=== PATIENT | female | born 1935 | race Caucasian/White ===

== ENCOUNTER 2022-08-17 18:31 | Observation (INO) ==
--- NOTE | 2022-08-17 19:24 | Emergency Department Note ---
History of Present Illness General Chief complaint: Illness Time Seen by Provider: 08/17/22 19:09 Source: patient, family (Daughter who is at the bedside), RN notes reviewed and old records reviewed (I have reviewed the ambulance records) Mode of arrival: ambulatory Limitations: no limitations History of Present Illness This patient is a 87-year-old female who has a history of a significant stroke in the past, comes in after an shortness of breath. She was exposed to COVID 1 week ago and tested home positive COVID last night she had some shortness of breath although feels better now. She had a low-grade temperature for her which was up to 98 H she been coughing all day no new numbness or weakness no fall or trauma no blood or melena stool she has been eating drinking as normal she is on Eliquis. No headache. No dysuria Home Medications Medication Instructions Recorded Confirmed Type Eliquis 2.5 mg PO BID 08/17/22 08/17/22 History Vitamin C 500 mg PO DAILY 08/17/22 08/17/22 History levothyroxine 25 mcg tablet 25 mcg PO DAILY 08/17/22 08/17/22 History mirabegron 25 mg tablet,extended 25 mg PO DAILY 08/17/22 08/17/22 History release 24 hr (Myrbetriq) pravastatin 10 mg tablet 10 mg PO DAILY 08/17/22 08/17/22 History senna 25 mg PO AC 08/17/22 08/17/22 History sertraline 25 mg tablet 25 mg PO DAILY 08/17/22 08/17/22 History tramadol 25 mg PO DAILY 08/17/22 08/17/22 History Allergies Allergy/AdvReac Type Severity Reaction Status Date / Time No Known Allergies Allergy Unverified 02/09/20 06:13 Past Med/Surg History Social History Smoking Status: Never smoker Hx Alcohol Use: No Hx Substance Use: No Preferred Language: Moldovan Communication Ability: Effective Baking Powder Mixer Required: No Beliefs That Will Affect Care: Advent Advent Beliefs: Congregational. Would like to see airport operations crew member Current Living Situation: Spouse Current Living Situation Comment: Usually has 24 hour care when needed Feels Safe at Home: Yes Safety Concerns: Feels Safe At This Time Assistive Devices: Hospital Bed Assistive Devices Comment: dentures don't fit Immunizations: Past med historyCVA, on Eliquis. Denies history of pulmonary disease, blood clots. She does have cardiomyopathy and kidney stone Social historyshe is followed by Dr. Patino Review of Systems A total of 10 systems reviewed and were otherwise negative Physical Exam Vital Signs Vital Signs - 24 hr 08/17/22 18:35 08/17/22 19:46 08/17/22 21:01 Temperature 37.2 C Temperature Source Oral Pulse Rate 96 H 91 H Pulse Rate [Left Finger] 88 Respiratory Rate 24 18 22 Respiratory Effort / Characteristics Non-Labored Respiratory Depth Normal Blood Pressure 155/98 H Blood Pressure [Right Arm] 155/98 H Blood Pressure Mean 117 Blood Pressure Mean [Right Arm] 117 Blood Pressure Position [Right Arm] Lying Pulse Oximetry 99 99 90 Oxygen Delivery Method Room Air Nasal Cannula Room Air Oxygen Flow Rate 2 Sepsis Recent Fever Within 48 Hours No Sepsis New/Unexplained Change in Mental Status N/A Sepsis Action Taken by Nursing No Action Required 08/17/22 21:01 08/17/22 18:43 Temperature Temperature Source Pulse Rate 92 H Pulse Rate [Left Finger] 91 H Respiratory Rate Respiratory Effort / Characteristics Respiratory Depth Blood Pressure Blood Pressure [Right Arm] Blood Pressure Mean Blood Pressure Mean [Right Arm] Blood Pressure Position [Right Arm] Pulse Oximetry 90 Oxygen Delivery Method Room Air Oxygen Flow Rate Sepsis Recent Fever Within 48 Hours Sepsis New/Unexplained Change in Mental Status Sepsis Action Taken by Nursing General: Well developed well nourished chronically appearing older female who appears in no acute distress, breathing comfortably supplemental nasal cannula which she does not typically wear normal speech HEENT: Normal cephalic atraumatic. Pupils are equal round and reactive to light. Extraocular movements are intact. Oropharynx is pink with moist mucous membranes. No swelling of the mouth lips or tongue. Neck: Supple with a midline trachea. No meningeal signs or stiffness, no JVD or bruits. No Stridor. Chest: Clear to auscultation bilaterally. No wheezes or rhonchi. No increased work of breathing. Heart: Regular rate and rhythm without murmurs or gallops. Abdomen: Soft nontender, nondistended without rebound guarding or rigidity. Extremities: No cyanosis clubbing or edema. No calf tenderness or assymetry Spine/Back. Non tender to palpation. No CVA tenderness Skin: Good turgor without rashes. Neurologic exam: Cranial nerves two through 12 are intact. Baseline left-sided weakness. No acute neurologic deficit Course Administered Medications Albuterol (Albut/Ipratrop 3mg/0.5mg Neb 3 Ml Vial) 3 ml NEB Q2H PRN; Protocol PRN Reason: SOB/WHEEZING Stop: 09/16/22 22:01 Last Admin: 08/18/22 01:40 Dose: 3 ml Documented By: Admin: 08/17/22 22:37 Dose: 3 ml Documented By: CHESTER Apixaban (Apixaban 2.5 Mg Tab) 2.5 mg PO BID RYLIE Stop: 09/16/22 23:50 Last Admin: 08/18/22 00:34 Dose: 2.5 mg Documented By: HYACINTH Tramadol HCl (Tramadol Hcl 50 Mg Tablet) 25 mg PO HS RYLIE Stop: 09/16/22 23:50 Last Admin: 08/18/22 00:29 Dose: 25 mg Documented By: HYACINTH Discontinued Medications Guaifenesin (Guaifenesin Sugar Free 200 Mg/10 Ml Udc) 200 mg PO NOW STA Stop: 08/17/22 22:00 Last Admin: 08/17/22 22:09 Dose: 200 mg Documented By: SHANE Medical Decision Making Differential Diagnosis COVID, sepsis, pneumonia, cardiac disease, electrolyte or metabolic abnormality, CV Medical Records Attestation: I reviewed the patient's medical records. Home Medications Current Medication List: was personally reviewed by me Laboratory Data Attestation: I reviewed the patient's lab results. 08/17/22 19:15 08/17/22 19:15 Lab Results 08/17/22 08/17/22 08/17/22 Range/Units 19:15 19:15 19:15 WBC 6.11 (4.8-10.8) K/ul RBC 3.66 L (4.20-5.40) M/uL Hgb 11.5 L (12.0-16.0) g/dl Hct 35.5 L (37.0-47.0) % MCV 97.0 (80.0-100.0) fL MCH 31.4 (25.0-34.0) pg MCHC 32.4 (32.0-36.0) g/dL RDW Std Deviation 50.6 H (36.4-46.3) fL RDW Coeff of [place] 14.1 (11.5-14.5) % Plt Count 261 (130-400) K/uL MPV 9.8 (9.4-12.4) fL Immature Gran % (Auto) 0.3 % Neut % (Auto) 72.7 % Lymph % (Auto) 14.9 % [place] % (Auto) 11.0 % Eos % (Auto) 0.8 % Baso % (Auto) 0.3 % Neut # (Auto) 4.44 (1.40-6.50) K/uL Lymph # (Auto) 0.91 L (1.2-3.4) K/uL [place] # (Auto) 0.67 H (0.11-0.59) K/uL Eos # (Auto) 0.05 (0-0.50) K/uL Baso # (Auto) 0.02 (0-0.2) K/uL Immature Gran # (Auto) 0.02 (0.01-0.20) K/uL Sodium 138 (136-145) mmol/L Potassium 4.0 (3.5-5.1) mmol/L Chloride 102 (98-107) mmol/L Carbon Dioxide 34 H (21-32) mmol/L Anion Gap 2 L (3-11) BUN 16 (6-23) mg/dl Creatinine 0.42 L (0.6-1.2) mg/dl Est Cr Clr Drug Dosing 84.2 ml/min Est GFR ( Amer) 107.6 ml/min Est GFR (Non-Af Amer) 92.8 ml/min BUN/Creatinine Ratio 38.1 H (10-20) Glucose 103 H (70-99(Fasting)) mg/dl Lactate (0.4-2.0) mmol/L Calcium 8.9 (8.5-10.1) mg/dl Magnesium 1.8 (1.7-2.4) mg/dl Total Bilirubin 0.3 (0.2-1.0) mg/dl Direct Bilirubin 0.1 (0-0.2) mg/dl AST 24 (13-39) U/L ALT 12 (7-52) U/L Alkaline Phosphatase 100 (34-104) U/L Troponin I High Sens 12.2 (0-14) pg/ml Total Protein 6.0 (6.0-8.3) gm/dl Albumin 3.3 L (3.4-5.0) gm/dl Procalcitonin < 0.05 (0-0.5) ng/ml Urine Color Urine Appearance (Clear) Urine pH (4.5-7.5) Ur Specific [place] (1.000-1.030) Urine Protein (Negative) Urine Glucose (UA) (Negative) Urine Ketones (Negative) Urine Blood (Negative) Urine Nitrite (Negative) Urine Bilirubin (Negative) Urine Urobilinogen (Negative) Ur Leukocyte Esterase (Negative) Urine WBC (Auto) (0-5) /hpf Urine RBC (Auto) (0-4) /hpf U Hyaline Cast (Auto) (0-5) /lpf U Epithel Cells (Auto) (0-5) /lpf Urine Bacteria (Auto) (Negative) SARS-CoV-2 (PCR) (Negative) Influenza Type A (PCR) (Neg) Influenza Type B (PCR) (Neg) RSV (RT-PCR) (Neg) 08/17/22 08/17/22 08/17/22 Range/Units 19:35 20:38 20:38 WBC (4.8-10.8) K/ul RBC (4.20-5.40) M/uL Hgb (12.0-16.0) g/dl Hct (37.0-47.0) % MCV (80.0-100.0) fL MCH (25.0-34.0) pg MCHC (32.0-36.0) g/dL RDW Std Deviation (36.4-46.3) fL RDW Coeff of [place] (11.5-14.5) % Plt Count (130-400) K/uL MPV (9.4-12.4) fL Immature Gran % (Auto) % Neut % (Auto) % Lymph % (Auto) % [place] % (Auto) % Eos % (Auto) % Baso % (Auto) % Neut # (Auto) (1.40-6.50) K/uL Lymph # (Auto) (1.2-3.4) K/uL [place] # (Auto) (0.11-0.59) K/uL Eos # (Auto) (0-0.50) K/uL Baso # (Auto) (0-0.2) K/uL Immature Gran # (Auto) (0.01-0.20) K/uL Sodium (136-145) mmol/L Potassium (3.5-5.1) mmol/L Chloride (98-107) mmol/L Carbon Dioxide (21-32) mmol/L Anion Gap (3-11) BUN (6-23) mg/dl Creatinine (0.6-1.2) mg/dl Est Cr Clr Drug Dosing ml/min Est GFR ( Amer) ml/min Est GFR (Non-Af Amer) ml/min BUN/Creatinine Ratio (10-20) Glucose (70-99(Fasting)) mg/dl Lactate 0.9 (0.4-2.0) mmol/L Calcium (8.5-10.1) mg/dl Magnesium (1.7-2.4) mg/dl Total Bilirubin (0.2-1.0) mg/dl Direct Bilirubin (0-0.2) mg/dl AST (13-39) U/L ALT (7-52) U/L Alkaline Phosphatase (34-104) U/L Troponin I High Sens (0-14) pg/ml Total Protein (6.0-8.3) gm/dl Albumin (3.4-5.0) gm/dl Procalcitonin (0-0.5) ng/ml Urine Color Yellow Urine Appearance Turbid A (Clear) Urine pH 7.0 (4.5-7.5) Ur Specific [place] 1.017 (1.000-1.030) Urine Protein Negative (Negative) Urine Glucose (UA) Negative (Negative) Urine Ketones Trace H (Negative) Urine Blood 3+ H (Negative) Urine Nitrite Negative (Negative) Urine Bilirubin Negative (Negative) Urine Urobilinogen Negative (Negative) Ur Leukocyte Esterase Trace H (Negative) Urine WBC (Auto) 5-10 H (0-5) /hpf Urine RBC (Auto) >30 H (0-4) /hpf U Hyaline Cast (Auto) 1-5 (0-5) /lpf U Epithel Cells (Auto) >30 H (0-5) /lpf Urine Bacteria (Auto) Negative (Negative) SARS-CoV-2 (PCR) POSITIVE A* (Negative) Influenza Type A (PCR) Negative (Neg) Influenza Type B (PCR) Negative (Neg) RSV (RT-PCR) Negative (Neg) Imaging Data Attestation: I personally reviewed and interpreted this imaging study as follows: My Impression: Chest x-rayno acute infiltrate, failure, pneumothorax. There may be some atelectasis in the bases Radiologist's Impression: Chest X-Ray 08/17/22 19:20 XR chest 1V portable HISTORY: Sepsis COMPARISON: None. FINDINGS: No pneumothorax. The cardiac silhouette is borderline enlarged. There are lung zones remain clear. No evidence for pulmonary edema. Slightly rotated study. Advanced degenerative changes within the right shoulder. Trace left pleural effusions. Bibasilar linear densities. IMPRESSION: 1. Trace left pleural effusion. 2. Bibasilar linear densities. This favors subsegmental atelectasis. ACT 112: Negative or not required by law. Electronically signed by: Stefan Yu M.D. 08/17/2022 8:53 PM ECG Data Attestation: I personally reviewed and interpreted this ECG as follows: Indication: + SOB/dyspnea Rate (beats per minute): 90 Rhythm: + normal sinus ECG Intervals/blocks: + Normal QRS, + Normal QT and + Normal CA ECG [place]: + Normal ECG ST segments: + Normal ST segments ECG Findings: no PACs or no PVCs Comparison ECG Date: from (02/19/2020) Change: the following changes noted (There is deviation in the QRS laterally) MDM Narrative This patient comes in as described above. She was placed in room B8. I talked to the daughter at length who was in the room. She looks stable on supplemental oxygen for she does not typically wear. Has been short of breath and has a history of being diagnosed with COVID yesterday. She is certainly high risk given her history of CVA and baseline weakness. Chest x-ray does not show any definite pneumonia there may be some atelectasis in the bases. I did a full assessment sepsis type work-up. Her white count, lactic acid and procalcitonin are not elevated. COVID test did come back positive. She was hypoxemic at 91% and she is certainly a risk given the fact that she has stroke history with significant left-sided weakness at baseline. I do think she needs to be admitted/observed in the hospital and have consulted Dr. Muhammad to see the patient in ER for these measures. Continuous cardiac monitoring: An order was placed in EMR for continuous cardiac monitoring. Alexis interpretation patient noted to be in normal sinus rhythm rate of 90. Impression & Plan COVID-19, Hx of ischemic right MCA stroke, SOB (shortness of breath), Hypoxemia Discharge Plan Visit Data Chief Complaint: Illness ED Provider: Jw Lennon Discharge Problem: COVID-19, Hx of ischemic right MCA stroke, SOB (shortness of breath), Hypoxemia Patient Disposition: Admitted As Inpatient Discharge Instructions Interventions: ED Discharge Assessment Last Done: 08/17/22 23:49
[2022-08-17 19:54] LABS: Basophils # (auto) 0.02 K/uL (0-0.2); Basophils % (auto) 0.3 %; Eosinophils # (auto) 0.05 K/uL (0-0.50); Eosinophils % (auto) 0.8 %; Hematocrit (blood only) 35.5 % (37.0-47.0); Hemoglobin 11.5 g/dl (12.0-16.0); Immature Granulocytes # (auto) 0.02 K/uL (0.01-0.20); Immature Granulocytes % (auto) 0.3 %; Lymphocytes # (auto) 0.91 K/uL (1.2-3.4); Lymphocytes % (auto) 14.9 %; Mean Corpuscular Hemoglobin 31.4 pg (25.0-34.0); Mean Corpuscular Hgb Conc 32.4 g/dL (32.0-36.0); Mean Platelet Volume 9.8 fL (9.4-12.4); Monocytes # (auto) 0.67 K/uL (0.11-0.59); Neutrophils # (auto) 4.44 K/uL (1.40-6.50); Neutrophils % (auto) 72.7 %; Platelet Count 261 K/uL (130-400); RDW Coefficient of Variation 14.1 % (11.5-14.5); RDW Standard Deviation 50.6 fL (36.4-46.3); Red Blood Count 3.66 M/uL (4.20-5.40); White Blood Count 6.11 K/ul (4.8-10.8)
[2022-08-17 20:03] LABS: Albumin Level 3.3 gm/dl (3.4-5.0); BUN Creatinine Ratio 38.1 (10-20); Bilirubin Direct 0.1 mg/dl (0-0.2); Bilirubin,Total 0.3 mg/dl (0.2-1.0); Calcium 8.9 mg/dl (8.5-10.1); Creatinine Clr Calc Pharmacy 84.2 ml/min; Est GFR (African American) 107.6 ml/min; Est GFR (Non-African American) 92.8 ml/min; Magnesium 1.8 mg/dl (1.7-2.4)
[2022-08-17 20:04] LABS: Troponin I High Sensitivity 12.2 pg/ml (0-14)
--- NOTE | 2022-08-17 20:54 | XRay Report ---
XR chest 1V portable HISTORY: Sepsis COMPARISON: None. FINDINGS: No pneumothorax. The cardiac silhouette is borderline enlarged. There are lung zones remain clear. No evidence for pulmonary edema. Slightly rotated study. Advanced degenerative changes within the right shoulder. Trace left pleural effusions. Bibasilar linear densities. IMPRESSION: 1. Trace left pleural effusion. 2. Bibasilar linear densities. This favors subsegmental atelectasis. ACT 112: Negative or not required by law. Electronically signed by: Stefan Yu M.D. 08/17/2022 8:53 PM
[2022-08-17 21:12] LABS: Appearance Urine Turbid (Clear); Bacteria Urine Automated Negative (Negative); Bilirubin Urine Negative (Negative); Blood Urine 3+ (Negative); Color Urine Yellow; Epithelial Cell Urine Auto >30 /lpf (0-5); Glucose Urine UA Negative (Negative); Ketones Urine Trace (Negative); Leukocyte Esterase Urine Trace (Negative); Nitrite Urine Negative (Negative); Protein Urine Negative (Negative); RBC Urine Automated >30 /hpf (0-4); Specific Gravity Urine 1.017 (1.000-1.030); Urobilinogen Urine Negative (Negative)
--- NOTE | 2022-08-17 21:17 | History & Physical Report ---
Date of Service August 17, 2022 Assessment & Plan (1) COVID-19: Plan: -Admit to med/tele -Patient noted to have a close contact test positive for covid and tested positive herself at home yesterday -Currently stable but high risk for decompensation and currently without a caregiver at home -Will continue symptomatic treatment with incentive spirometry, flutter therapy, scheduled DuoNebs, and schedule robitussin -If after her initial treatment the patient is saturating below 95% will start treatment with Dexamethasone and Remdesivir -Monitor on tele and pulse oximetry -Am CBC, BMP, and mag (2) Hx of ischemic right MCA stroke: Plan: -Currently with baseline left-sided hemiparesis -No new focal defects -Continue Eliquis -Continue home tramadol -Will order bedside dysphagia screen, patient is supposed to take medications with pudding -If she fails her dysphagia screen would have her evaluated by speech -Aspiration precautions ordered with minced/moist diet as explained by her lou garces (3) Hypothyroidism: Plan: -Continue levothyroxine (4) Hyperlipidemia: Plan: -Continue statin Plan The patient was discussed with Dr. Muhammad at the time of the admission History of Present Illness Chief Complaint: URI symptoms, covid + at home Primary Care Provider: Simón Mckeon is an 87 year old female with a PMH significant for previous CVA with left sided weakness, on Eliquis, hyperlipidemia, hypothyroidism, who presented to the [facility] ED on 08/17/22 with a chief complaint of URI symptoms and positive home covid test. In the ED the patient was found to be afebrile, hemodynamically stable and stable on RA. Labs were remarkable for a CBC with WBC WNL, stable Hgb and platelets, stable cr at 0.42, AG of 2 with bicarb of 34, LFTs WNL, high sensitivity trop of 12.2, procal of < 0.05, and covid positive. At the time of the exam the patient was lying comfortably in bed in no acute distress with her daughter sitting bedside. Her daughter states that the patient normally has 24 hour care at home but one of her caregivers tested positive for covid a few days ago. Yesterday the patient developed a productive cough and congestion, she subsequently tested positive for covid on a home test. She currently feels slightly improved after arriving to the ED but her symptoms have not resolved. Her daughter states that the patient takes her medications with pudding and has to eat a minced and moist diet but can tolerate thin liquids. She recently completed a course of Keflex for a UTI but denies current symptoms. We discussed code status, she wishes to be a DNR/DNI. Please refer to Dr. Muhammad's attestation for any changes to the treatment plan Allergies Allergy/AdvReac Type Severity Reaction Status Date / Time No Known Allergies Allergy Unverified 02/09/20 06:13 Home Medications Medication Instructions Recorded Confirmed Type Eliquis 2.5 mg PO BID 08/17/22 08/17/22 History Vitamin C 500 mg PO DAILY 08/17/22 08/17/22 History levothyroxine 25 mcg tablet 25 mcg PO DAILY 08/17/22 08/17/22 History mirabegron 25 mg tablet,extended 25 mg PO DAILY 08/17/22 08/17/22 History release 24 hr (Myrbetriq) pravastatin 10 mg tablet 10 mg PO DAILY 08/17/22 08/17/22 History senna 25 mg PO AC 08/17/22 08/17/22 History sertraline 25 mg tablet 25 mg PO DAILY 08/17/22 08/17/22 History tramadol 25 mg PO DAILY 08/17/22 08/17/22 History Past Med/Surg History Social History Smoking Status: Never smoker Hx Alcohol Use: No Hx Substance Use: No Preferred Language: Upper Sorbian Communication Ability: Effective Technician Inventory Specialist Required: No Beliefs That Will Affect Care: Sabianist Sabianist Beliefs: Hindu. Would like to see recruitment consultant Current Living Situation: Spouse Current Living Situation Comment: Usually has 24 hour care when needed Feels Safe at Home: Yes Safety Concerns: Feels Safe At This Time Assistive Devices: Hospital Bed Assistive Devices Comment: dentures don't fit Review of Systems Review of Systems: Denies current fever, chills, headache, changes in vision, hearing, taste, and smell, chest pain, SOB, abdominal pain, nausea, vomiting, diarrhea, hematemesis, melena, dysuria, hematuria, and recent falls. All systems have been reviewed and are otherwise negative. Physical Exam Physical Exam: Physical Exam: General: In no acute distress, stated age, chronically ill-appearing but non- toxic appearing HEENT: Normocephalic, atraumatic, no scleral icterus, pupils around round, symmetrical, and reactive to light, dry mucus membranes, trachea midline, no thyromegaly Chest/Pulm: No respiratory distress, symmetrical chest expansion, expiratory wheezing noted in the BL lower lung senior Cardiac: RRR, no murmurs noted Abdomen: Negative for ascites and bruising, normoactive bowel sounds, soft, non-tender to palpation throughout Musculoskeletal: Patient with chronic baseline left-sided weakness, no acute trauma noted on exam Extremities: Radial, dorsalis pedis, and posterior tibial pulses are intact and symmetrical, no edema noted in the BL LE's Skin: Warm, dry, no rashes , lesions, or scars noted Neuro: Alert and oriented to person, place, month, year, and president, patient with baseline left-sided paralysis Psych: No acute distress, calm and cooperative during the exam Results & Data Results & Data ([facility]) Vital Signs (Past 12 Hours) Vital Signs Temp Pulse Pulse Resp BP BP Pulse Ox 08/17/22 21:01 91 H 90 08/17/22 21:01 91 H 22 90 08/17/22 19:46 88 18 155/98 H 99 08/17/22 18:35 37.2 C 96 H 24 155/98 H 99 O2 Del Method O2 Flow Rate 08/17/22 21:01 Room Air 08/17/22 21:01 Room Air 08/17/22 19:46 Nasal Cannula 2 08/17/22 18:35 Room Air Laboratory Results Abnormal lab results 08/17/22 08/17/22 08/17/22 Range/Units 19:15 19:15 20:38 RBC 3.66 L (4.20-5.40) M/uL Hgb 11.5 L (12.0-16.0) g/dl Hct 35.5 L (37.0-47.0) % RDW Std Deviation 50.6 H (36.4-46.3) fL Lymph # (Auto) 0.91 L (1.2-3.4) K/uL [place] # (Auto) 0.67 H (0.11-0.59) K/uL Carbon Dioxide 34 H (21-32) mmol/L Anion Gap 2 L (3-11) Creatinine 0.42 L (0.6-1.2) mg/dl BUN/Creatinine Ratio 38.1 H (10-20) Glucose 103 H (70-99(Fasting)) mg/dl Albumin 3.3 L (3.4-5.0) gm/dl Urine Appearance Turbid A (Clear) Urine Ketones Trace H (Negative) Urine Blood 3+ H (Negative) Ur Leukocyte Esterase Trace H (Negative) Urine WBC (Auto) 5-10 H (0-5) /hpf Urine RBC (Auto) >30 H (0-4) /hpf U Epithel Cells (Auto) >30 H (0-5) /lpf SARS-CoV-2 (PCR) (Negative) 08/17/22 Range/Units 20:38 RBC (4.20-5.40) M/uL Hgb (12.0-16.0) g/dl Hct (37.0-47.0) % RDW Std Deviation (36.4-46.3) fL Lymph # (Auto) (1.2-3.4) K/uL [place] # (Auto) (0.11-0.59) K/uL Carbon Dioxide (21-32) mmol/L Anion Gap (3-11) Creatinine (0.6-1.2) mg/dl BUN/Creatinine Ratio (10-20) Glucose (70-99(Fasting)) mg/dl Albumin (3.4-5.0) gm/dl Urine Appearance (Clear) Urine Ketones (Negative) Urine Blood (Negative) Ur Leukocyte Esterase (Negative) Urine WBC (Auto) (0-5) /hpf Urine RBC (Auto) (0-4) /hpf U Epithel Cells (Auto) (0-5) /lpf SARS-CoV-2 (PCR) POSITIVE A* (Negative) Diagnostic Findings Chest X-Ray 08/17/22 19:20 XR chest 1V portable HISTORY: Sepsis COMPARISON: None. FINDINGS: No pneumothorax. The cardiac silhouette is borderline enlarged. There are lung zones remain clear. No evidence for pulmonary edema. Slightly rotated study. Advanced degenerative changes within the right shoulder. Trace left pleural effusions. Bibasilar linear densities. IMPRESSION: 1. Trace left pleural effusion. 2. Bibasilar linear densities. This favors subsegmental atelectasis. ACT 112: Negative or not required by law. Electronically signed by: Steafn Yu M.D. 08/17/2022 8:53 PM ECG Additional Comments: Poor data quality, interpretation may be adversely affected Normal sinus rhythm Inferior infarct , age undetermined Anterior infarct , age undetermined Abnormal ECG When compared with ECG of 09-FEB-2020 04:38, Anterior infarct is now Present Inferior infarct is now Present T wave inversion more evident in Inferior leads T wave inversion now evident in Anterior leads Code Status & VTE Plan Code Status DNR/DNI Supervising Physician Co-Signing Physician Notes Patient seen and examined, chart reviewed, case discussed with RON Mcdonald and I agree with the assessment and plan as documented above. In brief, patient is an 87-year-old female with history of prior stroke with residual left-sided weakness, hyperlipidemia, hypothyroidism who presents with URI symptoms, diffuse generalized weakness and a positive home COVID test. Niece is at bedside and assists with history. On physical exam patient is afebrile, hemodynamically stable, no acute distress. She is a frail, elderly female HEENTnormocephalic, atraumatic, pupils equal round and reactive, dry mucous membranes Heart+ S1, S2, regular Lungsno respiratory distress, equal air entry bilaterally, faint crackles in bilateral lower lung senior Abdomen+ bowel sounds, soft, nontender, nondistended Extremitieswarm, well-perfused, no clubbing/cyanosis/edema Neurobaseline left-sided paresis. Patient is alert and oriented x4 Saturations have been ranging 90 to 99%. She is presently on 2 L nasal cannula Labs and images reviewed. Assessment/plan 87-year-old female presenting with COVID-19, mild hypoxia with saturations of 90% on room air Admit to medical with telemetry Will initiate dexamethasone 6 mg IV We will initiate remdesivir DuoNeb as needed PT/OT evaluations Remainder of plan as above PG Care Time/CCT Total # of Minutes Spent Total Time Spent with Patient: Total time spent is greater than 50% in coordination of care (as documented) at patient's floor/unit and/or counseling patient: Coding [place] [address] INT INP/OBS CARE 3/75MIN Patient Type Established Medical Decision Making High Complexity Diagnoses COVID-19 U07.1 Hx of ischemic right MCA stroke Z86.73 Hypothyroidism E03.9 Hyperlipidemia E78.5
[2022-08-17 21:43] LABS: Influenza A virus by PCR Negative (Neg); Influenza B virus by PCR Negative (Neg); RSV by PCR Negative (Neg)
[2022-08-17 21:47] LABS: SARS CoV2 RNA(COVID-19) Ceph POSITIVE (Negative)
[2022-08-17] MEDS ORDERED: guaiFENesin SUGAR FREE 200 MG/10 ML UDC PO STA (21:59)
[2022-08-17] MEDS: ALBUT/IPRATROP 3MG/0.5MG NEB 3 ML VIAL NEB PRN (22:37)
[2022-08-18] MEDS: traMADol HCL 50 MG TABLET PO SCH ×3 (00:29→20:40)
[2022-08-18] MEDS: APIXABAN 2.5 MG TAB PO SCH ×3 (00:34→20:40)
[2022-08-18] MEDS: ALBUT/IPRATROP 3MG/0.5MG NEB 3 ML VIAL NEB PRN (01:40)
[2022-08-18] MEDS ORDERED: REMDESIVIR 200 MG in SODIUM CHLORIDE 0.9% 210 ML IV STA (02:10)
[2022-08-18] MEDS ORDERED: dexAMETHasone 6 MG in SYRINGE 0 ML IV SCH (02:15)
[2022-08-18] MEDS: LEVOTHYROXINE SODIUM 25 MCG TABLET PO SCH (06:28)
[2022-08-18] MEDS: guaiFENesin SUGAR FREE 200 MG/10 ML UDC PO SCH ×3 (06:28→17:21)
[2022-08-18] MEDS ORDERED: ALBUT/IPRATROP 3MG/0.5MG NEB 3 ML VIAL NEB SCH (07:00)
[2022-08-18 07:47] LABS: Hematocrit (blood only) 35.8 % (37.0-47.0); Hemoglobin 11.7 g/dl (12.0-16.0); Mean Corpuscular Hemoglobin 31.3 pg (25.0-34.0); Mean Corpuscular Hgb Conc 32.7 g/dL (32.0-36.0); Mean Corpuscular Volume 95.7 fL (80.0-100.0); Mean Platelet Volume 9.9 fL (9.4-12.4); Platelet Count 265 K/uL (130-400); RDW Coefficient of Variation 14.2 % (11.5-14.5); RDW Standard Deviation 50.6 fL (36.4-46.3); Red Blood Count 3.74 M/uL (4.20-5.40); White Blood Count 9.27 K/ul (4.8-10.8)
[2022-08-18 08:05] LABS: BUN Creatinine Ratio 32.5 (10-20); Est GFR (African American) 109.3 ml/min; Est GFR (Non-African American) 94.3 ml/min; Magnesium 1.7 mg/dl (1.7-2.4); Potassium 3.9 mmol/L (3.5-5.1)
[2022-08-18] MEDS: SERTRALINE HCL 50 MG TABLET PO SCH (08:49)
[2022-08-18] MEDS: SENNA 8.6 MG TAB PO SCH ×4 (08:49→15:38)
[2022-08-18] MEDS: MIRABEGRON ER 25 MG TAB PO SCH (08:50)
--- NOTE | 2022-08-18 10:44 | Electrocardiogram Report ---
Test Reason : Blood Pressure : / mmHG Vent. Rate : 090 BPM Atrial Rate : 090 BPM P-R Int : 158 ms QRS Dur : 080 ms QT Int : 348 ms P-R-T Axes : -17 -25 -22 degrees QTc Int : 425 ms Poor data quality, interpretation may be adversely affected Normal sinus rhythm Inferior infarct , age undetermined Anterior infarct , age undetermined Abnormal ECG When compared with ECG of 09-FEB-2020 04:38, Anterior infarct is now Present Inferior infarct is now Present T wave inversion more evident in Inferior leads T wave inversion now evident in Anterior leads Confirmed by Jerry Haynes ([id number]) on 08/18/2022 10:44:03 AM Referred By: REFERRED SELF Confirmed By:Mic Haynes
[2022-08-18] MEDS ORDERED: AZITHROMYCIN 250 MG TAB PO ONE (12:01)
[2022-08-18] MEDS: dexAMETHasone 6 MG in SYRINGE 0 ML IV SCH (12:23)
[2022-08-18] MEDS: CHOLECALCIFEROL 5,000 UNITS 125 MCG TAB PO SCH (12:23)
[2022-08-18] MEDS: ZINC SULFATE 220 MG CAPSULE PO SCH (12:24)
--- NOTE | 2022-08-18 14:21 | Hospitalist Progress Note ---
Date of Service August 18, 2022 Assessment & Plan (1) COVID-19: Plan: Mild symptoms at this point. No respiratory compromise. No need for supplemental oxygen at this time. Remdesivir has been discontinued per family request. Oral azithromycin, vitamin D, and zinc have been started. Dexamethasone dosage uptitrated. Supportive care (2) Hx of ischemic right MCA stroke: Plan: Chronic left hemiparesis. Supportive care. Continue current medical management including Eliquis (3) Hypothyroidism: Plan: Stable. Continue levothyroxine (4) Hyperlipidemia: Plan: Low-fat diet. Consider discontinuing statin due to advanced age Plan Anticipate discharge to home tomorrow, August 19, on oral medications Admission and Anticipated Discharge Date Admission Date: August 17, 2022 Subjective The patient is alert and appears to be oriented. Daughter is at the bedside. She does not want the patient to receive remdesivir and I agree. There is no oxygen requirement at this time and chest x-ray is clear. We will add oral azithromycin, vitamin D, zinc and discontinue remdesivir. Dexamethasone increased to every 12 hour dosing. Probable discharge to home tomorrowAugust 19 on oral medications including a prednisone taper Review of Systems Review of Systems: Constitutional-no fever or chills ENT-no blurred vision, no double vision, no epistaxis, no sore throat Respiratory-no cough, no wheezing, no shortness of breath Cardiac-no palpitations, no chest pain, no syncope GI-no nausea, vomiting, diarrhea, melena, hematochezia -no urinary retention, no urinary incontinence, no dysuria, no hematuria Musculoskeletal-no joint pain, no muscle tenderness Skin-no bruising, no rashes, no pruritus Neuro-no isolated weakness, no paresthesia, no weakness Psych-no depression, no anxiety Physical Exam Physical Exam: General-alert and oriented x3, no fevers, no chills HEENT-head atraumatic and normocephalic, pupils equal and reactive to light, extraocular muscles intact Neck-no lymphadenopathy or thyromegaly, trachea midline Chest-clear to auscultation percussion. No rales wheezing or rhonchi Cardiac-regular rate and rhythm, normal S1 and S2 Abdomen-normal bowel sounds, nontender, no hepatosplenomegaly Extremities-no cyanosis, clubbing, or edema Neuro-chronic left hemiparesis from old right-sided CVA. Psych-normal affect, normal mood Results & Data Results & Data ([facility]) Vital Signs (Past 12 Hours) Vital Signs Temp Pulse Pulse Resp BP Pulse Ox O2 Del Method 08/18/22 11:24 36.6 C 90 16 128/75 95 Room Air 08/18/22 08:49 36.3 C L 93 H 18 137/79 94 Room Air 08/18/22 05:59 107 H 08/18/22 07:09 78 18 97 Nasal Cannula 08/18/22 03:23 36.5 C 98 H 18 131/83 96 Nasal Cannula O2 Flow Rate 08/18/22 11:24 08/18/22 08:49 08/18/22 05:59 08/18/22 07:09 1 08/18/22 03:23 2 Laboratory Results 08/18/22 07:02 08/18/22 07:02 PG Care Time/CCT Total # of Minutes Spent Total Time Spent with Patient: Total time spent is greater than 50% in coordination of care (as documented) at patient's floor/unit and/or counseling patient: Coding Level of Care Code 84328 SUB INP/OBS CARE 3/50MIN Diagnoses COVID-19 U07.1 Hx of ischemic right MCA stroke Z86.73 Hypothyroidism E03.9 Hyperlipidemia E78.5
[2022-08-18] MEDS ORDERED: PRAVASTATIN SOD 10 MG TAB PO SCH (21:00)
[2022-08-19] MEDS: dexAMETHasone 6 MG in SYRINGE 0 ML IV SCH ×2 (01:15→13:23)
[2022-08-19] MEDS: guaiFENesin SUGAR FREE 200 MG/10 ML UDC PO SCH ×3 (01:15→12:36)
[2022-08-19] MEDS: LEVOTHYROXINE SODIUM 25 MCG TABLET PO SCH (05:58)
[2022-08-19 07:08] LABS: Hematocrit (blood only) 35.1 % (37.0-47.0); Hemoglobin 11.6 g/dl (12.0-16.0); Mean Corpuscular Hemoglobin 31.4 pg (25.0-34.0); Mean Corpuscular Volume 94.9 fL (80.0-100.0); Mean Platelet Volume 9.8 fL (9.4-12.4); Platelet Count 257 K/uL (130-400); RDW Standard Deviation 49.3 fL (36.4-46.3); White Blood Count 5.96 K/ul (4.8-10.8)
[2022-08-19 07:41] LABS: BUN Creatinine Ratio 42.9 (10-20); Calcium 9.1 mg/dl (8.5-10.1); Creatinine Clr Calc Pharmacy 68.8 ml/min; Est GFR (African American) 107.6 ml/min; Est GFR (Non-African American) 92.8 ml/min; Magnesium 1.9 mg/dl (1.7-2.4); Potassium 4.7 mmol/L (3.5-5.1)
[2022-08-19] MEDS: SERTRALINE HCL 50 MG TABLET PO SCH (08:28)
[2022-08-19] MEDS: APIXABAN 2.5 MG TAB PO SCH (08:29)
[2022-08-19] MEDS: ZINC SULFATE 220 MG CAPSULE PO SCH (08:29)
[2022-08-19] MEDS: MIRABEGRON ER 25 MG TAB PO SCH (08:29)
[2022-08-19] MEDS: CHOLECALCIFEROL 5,000 UNITS 125 MCG TAB PO SCH (08:29)
[2022-08-19] MEDS: SENNA 8.6 MG TAB PO SCH ×2 (08:30→12:35)
[2022-08-19] MEDS ORDERED: AZITHROMYCIN 250 MG TAB PO SCH (09:00)
[2022-08-19] MEDS: traMADol HCL 50 MG TABLET PO SCH (09:20)
--- NOTE | 2022-08-19 09:28 | Discharge Summary ---
Date of Service August 19, 2022 Admission HPI Per Admitting Provider Linda is an 87 year old female with a PMH significant for previous CVA with left sided weakness, on Eliquis, hyperlipidemia, hypothyroidism, who presented to the [facility] ED on 08/17/22 with a chief complaint of URI symptoms and positive home covid test. In the ED the patient was found to be afebrile, hemodynamically stable and stable on RA. Labs were remarkable for a CBC with WBC WNL, stable Hgb and platelets, stable cr at 0.42, AG of 2 with bicarb of 34, LFTs WNL, high sensitivity trop of 12.2, procal of < 0.05, and covid positive. At the time of the exam the patient was lying comfortably in bed in no acute distress with her daughter sitting bedside. Her daughter states that the patient normally has 24 hour care at home but one of her caregivers tested positive for covid a few days ago. Yesterday the patient developed a productive cough and congestion, she subsequently tested positive for covid on a home test. She currently feels slightly improved after arriving to the ED but her symptoms have not resolved. Her daughter states that the patient takes her medications with pudding and has to eat a minced and moist diet but can tolerate thin liquids. She recently completed a course of Keflex for a UTI but denies current symptoms. We discussed code status, she wishes to be a DNR/DNI. Please refer to Dr. Muhammad's attestation for any changes to the treatment plan Principal Diagnosis COVID-19 positivity Discharge Exam General-alert and oriented x3, no fevers, no chills HEENT-head atraumatic and normocephalic, pupils equal and reactive to light, extraocular muscles intact Neck-no lymphadenopathy or thyromegaly, trachea midline Chest-clear to auscultation percussion. No rales wheezing or rhonchi Cardiac-regular rate and rhythm, normal S1 and S2 Abdomen-normal bowel sounds, nontender, no hepatosplenomegaly Extremities-no cyanosis, clubbing, or edema Neuro-chronic left hemiparesis from old right-sided CVA. Psych-normal affect, normal mood Discharge Data Allergies Allergy/AdvReac Type Severity Reaction Status Date / Time No Known Allergies Allergy Unverified 02/09/20 06:13 Consultations 08/17/22 21:08 ED Decision to Admit Stat Hospital Course (1) COVID-19: Mild symptoms at this point. No respiratory compromise. No need for supplemental oxygen at this time. Remdesivir has been discontinued per family request. Oral azithromycin, vitamin D, and zinc have been started. We will continue at discharge. Dexamethasone dosage has been uptitrated. Will dischar ge on a prednisone tapering dose supportive care (2) Hx of ischemic right MCA stroke: Chronic left hemiparesis. Supportive care. Continue current medical management including Eliquis (3) Hypothyroidism: Stable. Continue levothyroxine (4) Hyperlipidemia: Low-fat diet. Consider discontinuing statin due to advanced age Plan Home today, August 19, on a short course of azithromycin, prednisone taper, vitamin D and zinc Total Time Total Time Spent Total Time Spent (In Minutes): 35 minutes Discharge Plan Discharge Items Patient Disposition: Home - Self-Care Reason For Visit: URI SYMTPOMS, + COVID TEST AT HOME Discharge Diagnosis: COVID-19 positivity Activity: As commented below Activity Comment: Quarantine for 1 week Non-emergency contact: Primary Care Provider Call non-emergency contact if: you have any medication questions Follow-up/Referrals: Simón Deleon [Primary Care Provider] - Diet: Heart Healthy Addtl Attending Provider Instructions: Take azithromycin daily for 5 days. Take prednisone tapering dose as directed. Continue to take vitamin D indefinitely. Take zinc for 1 week Pending Studies at Discharge: No Stand-Alone Forms: My Jelli, Smoking Cessation Medications and DC Order Prescriptions: New azithromycin 250 mg Tablet 250 mg PO QAM Qty: 5 0RF prednisone 10 mg tablet See Rx Instructions .ROUTE .COMPLEX Qty: 12 0RF Rx Instructions: 10 mg orally 3 times a day for 2 days, then 10 mg twice a day for 2 days, then 10 mg daily for 2 days, then stop cholecalciferol (vitamin D3) 125 mcg (5,000 unit) Tablet 5,000 unit PO QAM Qty: 0 0RF zinc sulfate [Orazinc] 50 mg zinc (220 mg) Capsule 220 mg PO QAM Qty: 0 0RF Continued levothyroxine 25 mcg tablet 25 mcg PO DAILY pravastatin 10 mg tablet 10 mg PO DAILY sertraline 25 mg tablet 25 mg PO DAILY Myrbetriq 25 mg tablet extended release 24 hr 25 mg PO DAILY Eliquis 2.5 mg PO BID Vitamin C 500 mg PO DAILY senna 25 mg PO AC tramadol 25 mg PO DAILY Discharge Orders: Discharge Order (Routine); Ordered 08/19/22 Ordered By: Hong Godoy Admission Data Admit Date/Time: 08/17/22 21:17 Attending Provider: Hong Godoy Admit Provider: Rashida Muhammad Primary Care Provider: Simón Deleon Other Providers: Rashida Muhammad Coding Level of Care Code HOSP INP/OBS DISCH >30 MIN Diagnoses COVID-19 U07.1 Hx of ischemic right MCA stroke Z86.73 Hypothyroidism E03.9 Hyperlipidemia E78.5
[2022-08-19] MEDS ORDERED: REMDESIVIR 100 MG in SODIUM CHLORIDE 0.9% 230 ML IV SCH (12:00)
== END 2022-08-19 14:47 | disposition home or self-care (01) ==
LOC: ED 18:31 → 2N 18:31 → SUATTDRO 21:17 → 2N 23:49